=== PATIENT | female | born 1995 | race African-American/Black ===

== ENCOUNTER 2021-08-10 13:01 | Emergency (ER) | payer MEDICAID ==
[~2021-08-10] VITALS: Ht 160 cm; Wt 55.0 kg
[2021-08-10 13:14] VITALS: BP 103/65
[2021-08-10] MEDS ORDERED: ACETAMINOPHEN 325MG TABLET PO STA (13:18)
[2021-08-10] MEDS ORDERED: PNV1TABL76 PO (13:19)
[2021-08-10 14:57] LABS: CLARITY URINE TURBID (CLEAR); COLOR URINE YELLOW (YELLOW); KETONES URINE 1+ (NEGATIVE); LEUKOCYTE ESTERASE URINE 1+ (NEGATIVE); NITRITE URINE NEGATIVE (NEGATIVE); OCCULT BLOOD URINE NEGATIVE (NEGATIVE); PH URINE 7.5 (4.5-8.0); PROTEIN URINE NEGATIVE (NEGATIVE); SPECIFIC GRAVITY URINE 1.018 (1.005-1.030); UROBILINOGEN URINE 0.2 E.U./dL (0.2-1.0)
[2021-08-10] MEDS ORDERED: CEFTRIAXONE SODIUM 500 MG/VIAL IM ONE (15:30)
[2021-08-10] MEDS ORDERED: AZITHROMYCIN 500 MG TABLET PO ONE (15:30)
[2021-08-10 15:51] LABS: HEMATOCRIT. 36.9 % (36.0-48.0); HEMOGLOBIN. 12.5 g/dL (12.0-16.0); MEAN CORPUSCULAR HEMOGLOBIN 31.5 pg (28.0-32.0); MEAN CORPUSCULAR VOLUME 92.8 fL (81.0-99.0); MEAN PLATELET VOLUME 7.2 fl (7.4-10.4); PLATELET 338 x1000/uL (130-400); RED BLOOD CELL COUNT 3.98 mill/uL (4.2-5.4); RED CELL DISTRIBUTION WIDTH 13.3 % (11.6-14.6)
[2021-08-10 15:57] LABS: CHLORIDE 106 mEq/L (98-107)
[2021-08-10 16:21] LABS: B-HCG QUANTITATIVE 85325 mIU/mL (<3)
[2021-08-10] MEDS ORDERED: ACET-2708 MT (17:22)
[2021-08-10] MEDS ORDERED: NITR-87 MT (17:22)
[2021-08-10 17:54] LABS: PLATELET ESTIMATE NORMAL
[2021-08-13 17:06] LABS: NEISSERIA GONORRHOEAE NAA Negative (Negative)
== END 2021-08-10 17:43 | disposition home or self-care (01) ==
LOC: ER 13:01
DX: O20.0 Threatened abortion (principal); O23.31 Infections of other parts of urinary tract in pregnancy, first trimester; Z3A.11 11 weeks gestation of pregnancy; R50.9 Fever, unspecified; N39.0 Urinary tract infection, site not specified; Z87.891 Personal history of nicotine dependence
CPT/HCPCS: 36415; 76801; 80053; 81003; 84702; 85025; 87210; 87491; 87591; 96372; 99284; J0696